=== PATIENT | female | born 1960 | race Caucasian/White ===

== ENCOUNTER 2016-11-13 05:19 | Emergency (ER) | payer OTHER, MEDICAID ==
[2016-11-13] MEDS ORDERED: PROMETHAZINE HCL 25 MG/ML INJ IVP ONE (05:21)
[2016-11-13] MEDS ORDERED: ONDANSETRON 4 MG/2 ML VIAL IVP ONE (05:21)
[2016-11-13] MEDS ORDERED: NS 1,000 ML IV ONE (05:21)
[2016-11-13] MEDS ORDERED: FAMOTIDINE 20 MG/NACL 50 ML IV ONE (05:21)
[2016-11-13 05:30] VITALS: RESP 16
[2016-11-13] MEDS ORDERED: FAMOTIDINE 20 MG/2 ML SDV IVP ONE (05:30)
[2016-11-13] MEDS ORDERED: DIAZEPAM 10 MG/2 ML SYR IVP ONE (05:59)
[2016-11-13] MEDS ORDERED: HALOPERIDOL LACT 5 MG/ML INJ IVP ONE (05:59)
[2016-11-13] MEDS ORDERED: HALOPERIDOL LACT 5 MG/ML INJ ONE (06:00)
--- NOTE | 2016-11-13 06:06 | EDPHY ---
H & P Time Seen by Provider: 11/13/16 05:37 HPI/ROS: HPI Vomiting, food poisoning. 56-year-old female, transgender from home and by ambulance. Patient reports she has been vomiting for the last 14 hours. No diarrhea. She reports that she got some left over premade Scottish food yesterday at a food bank share and shortly after eating this she started feeling ill with nausea followed by vomiting. She has had continued dry heaving tonight. She describes having abdominal discomfort associated with her vomiting but not while at rest. No ill contacts. No new medications. ROS: Constitutional: No fever, no chills. No weakness. Eyes: No discharge. No changes in vision. ENT: No sore throat. No nasal congestion or rhinorrhea. Respiratory: No cough. No shortness of breath. Cardiac: No chest pain, no palpitations. Gastrointestinal: As above, no diarrhea. Genitourinary: No hematuria. No dysuria or increased frequency with urination. Musculoskeletal: No back pain. No neck pain. No myalgias or arthralgias. Skin: No rashes. Neurological: No headache. No focal weakness or altered sensation. Past medical history: Non operative transsexual, COPD. Social history: Single, nonsmoker. No alcohol. Physical Exam: General Appearance: Alert, she appeared relax when I 1st evaluated her but then started dry heaving. This patient is responding to questions appropriately and in full sentences. This patient appears well-hydrated and well-nourished. Eyes: Pupils equal and round no pallor or injection. No lid edema, erythema or injection. Respiratory: There are no retractions, lungs are clear to auscultation with good air movement bilaterally. Cardiovascular: Regular rate and rhythm. No murmur. Gastrointestinal: Abdomen is soft and nontender, no masses, bowel sounds normal. No focal tenderness at McBurney's point. No Love sign. Neurological: Motor sensory function is grossly intact. Cranial nerves are normal. Gait is normal. Skin: Warm and dry, no rashes. Musculoskeletal: Neck is supple and nontender. Extremities are symmetrical. All joints range without pain or impingement. Psychiatric: No agitation. No depression. Database: EKG: Imaging: Procedures: Emergency department course: IV was placed. She was started on IV normal saline with 1 L to be given over the next hour. She was initially given 4 mg of IV Zofran, 6.5 mg of IV Phenergan and 20 mg of IV Pepcid. 6:05 a.m., patient re-evaluated. She continues to have some dry heaving although she stated that she felt better initially. She was given 2.5 mg of IV Haldol and 5 mg of IV Valium. 6:45 a.m., patient re-evaluated. She is sleeping comfortably at this time. Easily arousable. She is feeling much better after above medications. She was given an oral fluid challenge which she tolerated well. Repeat abdominal exam she is soft, nontender nondistended. She feels comfortable going home and I feel she is safe for discharge. Follow-up and return to emergency department precautions were reviewed with her. All of her questions were answered. She was discharged in good condition. Differential Diagnosis: The differential diagnosis on this patient includes but is not limited to food borne illness. Serious bacterial infection, significant dehydration, bowel obstruction, other surgical etiology unlikely. This represents a partial list of diagnoses considered. These considerations are based on history, physical exam, past history, reassessment and diagnostic testing. Smoking Status: Former smoker Constitutional: Initial Vital Signs Temperature (C) 36.6 C 11/13/16 05:26 Heart Rate 78 11/13/16 05:26 Respiratory Rate 16 11/13/16 05:26 Blood Pressure 113/78 11/13/16 05:26 O2 Sat (%) 96 11/13/16 05:26 O2 Delivery Mode Room Air Allergies/Adverse Reactions: No Known Allergies Allergy (Verified 11/13/16 05:26) Home Medications: Medication Instructions Recorded Diazepam [Valium] 5 mg PO 10/30/10 Estrogens, Conjugated [Premarin] 0.9 mg PO 10/30/10 Pantoprazole Sodium [Protonix] 40 mg PO DAILY 10/30/10 Spironolactone [Aldactone 25 MG 25 mg PO 10/30/10 (*)] oxyCODONE CR [oxyCONTIN] 10/30/10 Albuterol Hfa Anes Only [Proair 06/29/13 Hfa Icu (*)] Fluticasone/Salmeter 250/50Mcg 06/29/13 [Advair] Ondansetron Odt [Zofran Odt] 4 mg PO Q4 01/17/15 Ondansetron Odt [Zofran Odt 4 mg 4 mg PO Q4PRN PRN #10 tab 11/13/16 (*)] Phenergan 11/13/16 Medical Decision Making - Data Points Medications Given: Discontinued Medications Diazepam (Valium Injection) 5 mg IVP EDNOW ONE Stop: 11/13/16 06:00 Last Admin: 11/13/16 06:00 Dose: 5 mg Famotidine (Pepcid) 20 mg IVP EDNOW ONE Stop: 11/13/16 05:31 Last Admin: 11/13/16 05:30 Dose: 20 mg Haloperidol Lactate (Haldol Injection) 2.5 mg IVP EDNOW ONE Stop: 11/13/16 06:00 Last Admin: 11/13/16 06:00 Dose: 2.5 mg Sodium Chloride (Ns) 1,000 mls @ 0 mls/hr IV ONCE ONE PRN Reason: Wide Open Stop: 11/13/16 05:22 Last Admin: 11/13/16 05:21 Dose: 1,000 mls Ondansetron HCl (Zofran) 4 mg IVP EDNOW ONE Stop: 11/13/16 05:22 Last Admin: 11/13/16 05:21 Dose: 4 mg Promethazine HCl (Phenergan) 6.25 mg IVP EDNOW ONE Stop: 11/13/16 05:22 Last Admin: 11/13/16 05:21 Dose: 6.25 mg Departure - Departure Disposition: Home, Routine, Self-Care Clinical Impression: Vomiting, Food poisoning Condition: Good Instructions: Acute Nausea and Vomiting (ED), Food Poisoning (ED) Additional Instructions: Read and follow provided instructions. Follow-up with your primary care physician in 1-2 days for re-evaluation. Take medication as prescribed for nausea. Keep well hydrated, good fluid to drink is Gatorade mixed with water in a 1-1 dilution. Return to the emergency department for worsening abdominal pain, vomiting and inability to keep fluids down despite medications or other serious concerns. Referrals: La Nena Whitley PA [Primary Care Provider] - As per Instructions Prescriptions: Ondansetron Odt [Zofran Odt 4 mg (*)] 4 mg PO Q4PRN PRN #10 tab PRN Reason: For Nausea & Vomiting
[2016-11-13] MEDS ORDERED: SILVER NITRATE APPLICATOR 1 APPL TP ONE (07:02)
[2016-11-13 07:49] VITALS: BP 128/73; PULSE 74; TEMP 98.2; O2SAT 97
== END 2016-11-13 07:49 | disposition home or self-care (01) ==
LOC: EDUNIT#
DX: T62.91XA Toxic effect of unspecified noxious substance eaten as food, accidental (unintentional), initial encounter (principal); J44.9 Chronic obstructive pulmonary disease, unspecified; Z87.891 Personal history of nicotine dependence
CPT/HCPCS: 96361; 96374; 96375; 99284; J2405; J2550